=== PATIENT | female | born 1985 | race Caucasian/White ===

== ENCOUNTER 2018-01-26 09:13 | Outpatient (CLI) | payer OTHER ==
[2018-01-26 11:43] LABS: Hemoglobin 13.8 g/dL (12.0-16.0); Mean Corpuscular HGB CONC 32.1 g/dL (32.0-36.0); Mean Corpuscular Hemoglobin 28.2 pg (27.0-31.0); Mean Corpuscular Volume 87.7 fl (81.0-99.0); Mean Platelet Volume 6.6 fL (7.4-10.4); Platelet Count 455 thou/uL (130-400); RBC Distribution Width 12.2 % (11.5-14.5); Red Blood Cell (RBC) Count 4.89 mill/uL (4.20-5.40)
[2018-01-26 11:48] LABS: BHCG - Serum Negative (NEGATIVE); Pregs Control Background? CLEAR/WHITE (CLR/WHITE); Pregs Control Bar Appear? YES (CONTROL BAR)
--- NOTE | 2018-01-28 18:29 | EKG ---
Test Reason : Blood Pressure : / mmHG Vent. Rate : 078 BPM Atrial Rate : 078 BPM P-R Int : 146 ms QRS Dur : 072 ms QT Int : 374 ms P-R-T Axes : 068 087 018 degrees QTc Int : 426 ms Normal sinus rhythm Low voltage QRS Borderline ECG No previous ECGs available Confirmed by ADEBAYO BARRY, DR. Rg ([id number]) on 01/28/2018 6:28:46 PM Referred By: RIGO Confirmed By:DR. Ifrah FIORE MD
== END 2018-01-26 09:14 | disposition home or self-care (01) ==
LOC: LABBT 09:13
PROVIDERS: ATTEND Obstetrics & Gynecology
DX: Z01.818 Encounter for other preprocedural examination (principal); D21.9 Benign neoplasm of connective and other soft tissue, unspecified
CPT/HCPCS: 84703; 85027; 86850; 86900; 86901; 93005; 93010

== ENCOUNTER 2018-01-30 05:47 | Day surgery (SDC) | payer OTHER ==
[2018-01-26 09:45] VITALS: BMI 28.3
--- NOTE | 2018-01-29 20:08 | HP ---
DATE OF ADMISSION: 01/30/2018 REASON FOR ADMISSION: Large solitary uterine fibroid with dysmenorrhea and pelvic pain. SCHEDULED PROCEDURE: Laparoscopic myomectomy with da Leticia and bag retrieval morselization. HISTORY OF PRESENT ILLNESS: Ms. Skelton is a 33-year-old G0, who initially came to see me in November at her annual exam where she was complaining of pelvic pain and severe dysmenorrhea with pressure. She was noted to have an exam consistent with a large fundal fibroid. Ultrasound and MRI confirmed t hat she has a 9 cm in greatest diameter on the posterior right lateral fundal fibroid that is solitar y in nature. I did discuss with the patient options for management, decision was made to proceed wit h myomectomy with da Leticia robotic bag retrieval. OB AND VOCATIONAL SERVICES SPECIALIST HISTORY: G0, not sexually active at this time. No history of STDs. PAST MEDICAL HISTORY: Significant for hypertension. PAST SURGICAL HISTORY: None. MEDICATIONS: Losartan. ALLERGIES: ZITHROMAX. SOCIAL HISTORY: Denies tobacco, alcohol, or IV drug abuse. FAMILY HISTORY: Noncontributory. REVIEW OF SYSTEMS: Noncontributory. PHYSICAL EXAMINATION: GENERAL: White female. VITAL SIGNS: 5 feet 2, 163 kg, BMI 29.8, blood pressure 120/74. HEENT: Within normal limits. LUNGS: Clear to auscultation bilaterally. HEART: Regular rhythm. BREASTS: Without masses bilaterally. ABDOMEN: Soft, nontender, no rebound or guarding. PELVIC: Vulva without lesions. Vagina with discharge. Cervix, nulliparous. Uterus, anteverted, en larged, 13 week size, fundal fibroid. No adnexal masses noted. LABORATORY STUDIES: Ultrasound and MRI confirmed solitary fibroid, measuring right at 10 cm in great est diameter, displacing the endometrial cavity to the left. No adnexal masses were noted. IMPRESSION: Large solitary symptomatic uterine fibroid. PLAN: Discussed with patient options including open myomectomy versus laparoscopic and retriev al with bag. We will proceed with the laparoscopic myomectomy retrieval with bag. The patient under stood risks and benefits of procedure including possible hysterectomy, possible infertility associate d with either fibroid or edema to interstitial portion of the fallopian tube from surgery, bleeding, and recurrence of fibroids. We will administer appropriate antibiotic and DVT prophylaxis and perfor m aforementioned surgery at [facility] on 01/30/2018.
[2018-01-30] MEDS ORDERED: CEFAZOLIN/Water 2 GM/20 ML SYRINGE ONE (06:04)
[2018-01-30] MEDS ORDERED: Bupivacaine HCl 0.5%/Epinephrine 1:200,000/PF 30 ml Vial ONE (06:32)
[2018-01-30] MEDS ORDERED: Fentanyl 250 MCG/5 ML VIAL ONE (07:19)
[2018-01-30] MEDS ORDERED: Promethazine HCl 25 MG/ML VIAL SLOW IVP PRN (10:23)
[2018-01-30] MEDS ORDERED: Meperidine HCl/PF 25 MG/ML VIAL SLOW IVP PRN (10:23)
[2018-01-30] MEDS ORDERED: Ondansetron HCl/PF 4 MG/2 ML Vial IVP PRN ×2 (10:23→12:13)
[2018-01-30] MEDS ORDERED: Fentanyl 100 MCG/2 ML VIAL ONE ×3 (10:47→11:42)
--- NOTE | 2018-01-30 11:17 | OP ---
DATE OF PROCEDURE: 01/30/2018 PREOPERATIVE DIAGNOSIS: Large posterior fundal fibroid, 9 cm. POSTOPERATIVE DIAGNOSIS: Large posterior fundal fibroid, 9 cm. PROCEDURE: Laparoscopic myomectomy with da Leticia robot assist and in bag morselization. SURGEON: Zach Skinner M.D. LEAD TEACHER: Yasmin Marrero D.O. ANESTHESIA: Amanda Umaña M.D. General endotracheal. ESTIMATED BLOOD LOSS: 500 mL. MEDICATIONS: Two grams Ancef preincision. DVT PROPHYLAXIS: SCDs. DRAINS: Alcocer to gravity, clear urine. OPERATIVE FINDINGS: 1. A large 9 cm posterior fibroid. 2. No evidence of entry into the endometrial cavity during myomectomy. 3. Greater than 2/3 depth thickness depth dissection of a uterine musculature for removal of fibroid . 4. Hemostasis, clear urine, counts correct at the end of the procedure. DISPOSITION: Recovery room and observation status. DESCRIPTION OF OPERATIVE PROCEDURE: After obtaining proper informed consent, the patient was taken t o the operating room where general endotracheal anesthesia was achieved without difficulty. The carolina ent was prepped and draped in dorsal lithotomy in Carlos stirrups. Side-hand speculum placed in vagin a, cervix identified, grasped with single-tooth tenaculum at 12 o'clock and Hulka manipulator placed inside. Alcocer catheter placed. Speculum and tenaculum removed. Polo Coach changed his gloves and tur chris his attention to the abdominal portion of procedure, 10 mL of Marcaine injected at the superior a spect of the umbilicus and a 12 mm skin incision made, carried down to the fascia and freeze needle p laced inside abdominal cavity. Insufflation carried out with carbon dioxide to a max pressure of 15. A 12 mm trocar was placed and confirmation entry into the peritoneal cavity without trauma to the u nderlying viscera was noted. The patient was placed in steep Trendelenburg position. Right and left lateral 8 mm da Leticia robot trocars were placed under direct visualization as well as an 11 mm norma tant port in the right upper quadrant. Umbilical incision was extended vertically to approximately 2 .5 cm in length and carried down to the fascia and the fascial incision extended at a distance as wel l. The applied medical small GelPOINT trocar was placed in the usual manner and the applied medical abdominal retrieval bag was placed in the right upper quadrant. The da Leticia robot was docked with a cobra grasper in the left hand and a monopolar scissor in the right after placing in steep Trendelen oscar position. Approximately 30 mL of a dilute Pitressin solution was injected into the fibroid joana g the posterior aspect and incision was carried through the serosa of the uterus horizontally over th e level of the fibroid. Dissection sharply was carried down to the level that the fibroid was identi fied and then the fibroid was dissected circumferentially free of the uterus. This was carried out i n a progressive manner over approximately 1 hour period of time. No evidence of entry into the uteri ne cavity or interference with the intrauterine course of the fallopian tubes was noted. Once the sp ecimen was removed it was placed in the left upper quadrant for retrieval. The space created by removal of the fibroid was reapproximated using running continuous Stratafix sutures x3, the last la lyudmila being a running locking suture at the level of the surface of the fibroid. Tisseel was applied a cross the incision for hemostasis and good hemostasis noted after application. Suction irrigation wa s carried out of the pelvis and upper abdomen. The fibroid specimen was placed in the applied medica l retrieval bag. The da Leticia trocars removed and the robot undocked. The GelPOINT top was pulled o ut and the retrieval bag ring was pulled out through the GelPOINT and pulled up snugly against the an terior abdominal wall. The fibroid was then morcellated out in the usual manner using Nabil thyroid clamps and 11 blade removing the specimen in its entirety. Once this was done, all the trocars were removed. The fascia at the level of the umbilical trocar with the GelPOINT was reapproximated using running continuous 0 Vicryl suture on a UR-5 needle reapproximating the fascia. The skin was reappro ximated x4 using 4-0 Monocryl and Dermabond. Hulka manipulator removed. The patient awakened, extub ated, and taken to recovery room in good condition.
[2018-01-30] MEDS ORDERED: Zolpidem Tartrate 5 MG TAB PO PRN (12:13)
[2018-01-30] MEDS ORDERED: Promethazine HCl 25 MG/ML VIAL IM PRN (12:13)
[2018-01-30] MEDS ORDERED: Morphine 4 MG/ML Carpuject SLOW IVP PRN (12:13)
[2018-01-30] MEDS ORDERED: Acetaminophen 1,000 MG in Premix Bag 1 BAG IVPB SCH (12:13)
[2018-01-30] MEDS ORDERED: Morphine 5 MG/ML SYRINGE SLOW IVP PRN (12:18)
[2018-01-30] MEDS: Ketorolac Tromethamine 30 MG/ML VIAL IVP SCH ×2 (12:24→18:46)
[2018-01-30] MEDS: Morphine 5 MG/ML SYRINGE SLOW IVP PRN ×2 (13:53→22:20)
[2018-01-30] MEDS: Lactated Ringer's 1,000 ML IV SCH ×2 (13:55→23:52)
[2018-01-30] MEDS: Acetaminophen 1,000 MG in Premix Bag 1 BAG IVPB SCH ×2 (15:35→21:18)
[2018-01-30] MEDS ORDERED: Propofol 200 MG/20 ML VIAL ONE (16:21)
[2018-01-30] MEDS ORDERED: Metoprolol Tartrate 5 MG/5 ML VIAL ONE (16:21)
[2018-01-30] MEDS ORDERED: Glycopyrrolate 0.2 MG/ML 5 ML SYRINGE ONE (16:21)
[2018-01-30] MEDS ORDERED: Lidocaine 1% PF 5 ML VIAL ONE (16:21)
[2018-01-30] MEDS ORDERED: Ketorolac Tromethamine 30 MG/ML VIAL ONE (16:21)
[2018-01-30] MEDS ORDERED: Dexamethasone 20 MG/5 ML VIAL ONE (16:21)
[2018-01-30] MEDS ORDERED: Simethicone Chewable 80 MG TAB PO PRN (20:47)
[2018-01-30] MEDS: traMADol HCl 50 MG TAB PO PRN (21:17)
[2018-01-31] MEDS: Ketorolac Tromethamine 30 MG/ML VIAL IVP SCH ×2 (00:08→05:23)
[2018-01-31] MEDS: Lactated Ringer's 1,000 ML IV SCH ×2 (00:13→12:30)
[2018-01-31] MEDS: Morphine 5 MG/ML SYRINGE SLOW IVP PRN ×2 (02:33→06:41)
[2018-01-31] MEDS: Acetaminophen 1,000 MG in Premix Bag 1 BAG IVPB SCH (02:36)
[2018-01-31] MEDS: traMADol HCl 50 MG TAB PO PRN (05:24)
[2018-01-31 05:44] LABS: Hemoglobin 10.6 g/dL (12.0-16.0); Mean Corpuscular HGB CONC 33.2 g/dL (32.0-36.0); Mean Corpuscular Hemoglobin 29.2 pg (27.0-31.0); Mean Corpuscular Volume 87.9 fl (81.0-99.0); Mean Platelet Volume 6.4 fL (7.4-10.4); Platelet Count 295 thou/uL (130-400); RBC Distribution Width 12.2 % (11.5-14.5); Red Blood Cell (RBC) Count 3.64 mill/uL (4.20-5.40); White Blood Cell (WBC) Count 12.5 thou/uL (4.8-10.8)
[2018-01-31] MEDS ORDERED: HYDROcodone/Acetaminophen 5/325 mg Tablet PO PRN (07:37)
--- NOTE | 2018-01-31 07:54 | DIS ---
SUMMARY OF HOSPITAL COURSE: Ms. Skelton was admitted and underwent a laparoscopic myomectomy for a l arge 7 cm posterior right fundal fibroid. Hematocrit went from 40 to 32%, which is consistent with marybeth olmstead patient's EBL intraoperatively. Postoperatively challenges included urinary retention which was f or approximately 8 hours. The patient, however, was able to void without catheterization and by the postoperative day #1, was voiding with ease. She was tolerating p.o. well. Pain control was also di fficult with the patient which was not surprising considering the large size of the fibroid and typic al post-fibroid pain. Initial control was with morphine, Ofirmev, and Toradol. The patient was underwood ged over to Celebrex and Boone for discharge. A.m. vital signs included a blood pressure 121/63, pulse of 83, temperature 98.4, respirations 18. Marybeth olmstead patient remained afebrile throughout her hospitalization. Her abdomen had normal discomfort. Her incisions were intact x4. There was moderate bruising consistent with a laparoscopy noted. She had no distention and she had active bowel sounds. The pain was generally at the level of her uterus we re reapproximation of the myometrium had occurred. Extremities without clubbing, cyanosis or edema. The patient will be discharged home on Celebrex and Bo[place]. She will have follow up at [facility] [place] in 4 weeks. Pathology will be followed up wh en available.
[2018-01-31] MEDS: HYDROcodone/Acetaminophen 5/325 mg Tablet PO PRN ×2 (08:28→12:28)
[2018-01-31] MEDS ORDERED: NORETHINDRONE E ESTRADIOL IRON PO SCH (09:00)
[2018-01-31] MEDS ORDERED: LO LOESTRIN FE PO SCH (09:00)
[2018-01-31] MEDS ORDERED: CeleCOXIB 100 MG CAP PO SCH (09:00)
[2018-01-31] MEDS ORDERED: Valsartan 80 MG TAB PO SCH (09:00)
[2018-01-31] MEDS ORDERED: Non-Formulary Item 1 EACH (Valsartan [Valsartan] 160 MG) PO SCH (09:00)
[2018-01-31] MEDS ORDERED: Docusate Calcium (SURFAK) 240 MG CAP PO PRN (11:03)
[2018-01-31 12:36] VITALS: BP 124/75; TEMP 97.8
== END 2018-01-31 12:50 | disposition home or self-care (01) ==
LOC: SDC 05:47 → 3SE 10:45 → UNDOADMOB 10:45 → SDC 01-31 12:50 → UNDODISOB 01-31 12:50
PROVIDERS: ATTEND Obstetrics & Gynecology
PROC: 0UB94ZZ Excision of Uterus, Percutaneous Endoscopic Approach (ICD-10-PCS; principal; 2018-01-31)
DX: D25.1 Intramural leiomyoma of uterus (principal); N92.0 Excessive and frequent menstruation with regular cycle; I10 Essential (primary) hypertension; Z79.899 Other long term (current) drug therapy; Z88.1 Allergy status to other antibiotic agents
CPT/HCPCS: 36415; 85027; 88305; 88360; 96374; J2270; A4216; J0131; J0670; J1100; J1885; J2001; J2405; J2704; J3010

== ENCOUNTER 2019-03-16 04:12 | Emergency (ER) | payer OTHER, SELFPAY ==
[2019-03-16] MEDS ORDERED: Ondansetron PF 4 MG/2 ML Vial ONE (04:15)
[2019-03-16] MEDS ORDERED: Ketorolac Tromethamine 30 MG/ML VIAL ONE (04:36)
[2019-03-16 04:41] LABS: #Basophils 0.1 thou/uL (0.0-0.2); #Eosinphils 0.1 thou/uL (0.0-0.7); #Lymphocytes 4.3 thou/uL (1.20-3.40); #Monocytes 0.7 thou/uL (0.11-0.59); %Basophils 0.8 % (0.0-1.0); %Eosinophils 0.8 % (0.0-10.0); %Lymphocytes 47.2 % (21.0-51.0); %Monocytes 7.8 % (0.0-10.0); %Neutrophils 43.5 % (42.0-75.0); Hemoglobin 14.9 g/dL (12.0-16.0); Mean Corpuscular HGB CONC 34.8 g/dL (32.0-36.0); Mean Corpuscular Hemoglobin 31.1 pg (27.0-31.0); Mean Corpuscular Volume 89.2 fL (78.0-98.0); Mean Platelet Volume 6.6 fL (7.4-10.4); Platelet Count 454 thou/uL (130-400); RBC Distribution Width 11.4 % (11.5-14.5); Red Blood Cell (RBC) Count 4.81 mill/uL (4.20-5.40); White Blood Cell (WBC) Count 9.1 thou/uL (4.8-10.8)
[2019-03-16] MEDS ORDERED: Morphine 4 MG/ML VIAL ONE ×2 (04:54→05:28)
[2019-03-16] MEDS ORDERED: Promethazine HCl 25 MG/ML VIAL ONE (04:54)
[2019-03-16 04:58] LABS: ALT (SGPT) 23 U/L (8-55); AST (SGOT) 17 U/L (5-34); Albumin 4.3 g/dL (3.5-5.0); Alkaline Phosphatase 44 U/L (40-150); Anion Gap 17 mmol/L (10-20); BUN (Urea Nitrogen) 13 mg/dL (7.0-18.7); Bilirubin, Total 1.7 mg/dL (0.2-1.2); Calc. Creatinine Clearance 0 mL/min (70-130); Calcium 9.7 mg/dL (7.8-10.44); Carbon Dioxide 22 mmol/L (22-29); Chloride 102 mmol/L (98-107); Estimated GFR-MDRD 79; Globulin 3.1 g/dL (2.4-3.5); Glucose 113 mg/dL (70-105); Lipase 44 U/L (8-78); Protein, Total 7.4 g/dL (6.0-8.3); Sodium 138 mmol/L (136-145)
[2019-03-16 05:49] LABS: BHCG - Serum Negative (NEGATIVE); Pregs Control Background? CLEAR/WHITE (CLR/WHITE); Pregs Control Bar Appear? YES (CONTROL BAR)
[2019-03-16] MEDS ORDERED: Pantoprazole 40 MG VIAL ONE (06:09)
[2019-03-16] MEDS ORDERED: Mag-Al 1200 mg/1200 mg/30 ML UDCUP ONE (06:23)
[2019-03-16] MEDS ORDERED: Lidocaine Viscous Sol 2% 15 ml UD Cup ONE (06:23)
[2019-03-16] MEDS ORDERED: Dicyclomine 20 MG TAB ONE (06:57)
[2019-03-16 06:58] LABS: Bilirubin Negative (Negative); Blood, Urine Negative (Negative); Clarity CLEAR (Clear); Glucose, Urine (Dipstick) Negative (Negative); Leukocyte Moderate (Negative); Nitrite Negative (Negative); Protein, Urine (Dipstick) Negative (Neg-Trace); Specific Gravity, Urine 1.009 (1.002-1.036); Urobilinogen 0.2 mg/dL (0.2-1.0); pH, Urine 7.5 (5.0-9.0)
[2019-03-16 07:00] LABS: Bacteria/HPF 1+ HPF (None Seen)
[2019-03-16 07:19] LABS: Hyaline Casts/LPF 0-3 HYALINE CAST LPF (0-3 Hyaline); Renal Epithelial 0-3 HPF (0-3); Transitional Epithelial 0-3 HPF (0-3)
--- NOTE | 2019-03-16 07:28 | CT ---
CT ABDOMEN AND PELVIS WITHOUT CONTRAST: Date: 03/16/19 INDICATION: History of abdominal pain. COMPARISON: None. FINDINGS: The lung bases are clear. The unopacified liver appears within normal limits. Unopacified pancreas and spleen appear within no rmal limits. Unopacified adrenal glands are normal appearing. The unopacified kidneys are normal appe aring. No hydronephrosis is demonstrated. No free fluid or enlarged lymph nodes are evident within the abdomen. Unopacified bladder, rectum, and perirectal soft tissues are unremarkable appearing. Unopacified colon is unremarkable. There is a normal appendix in the right lower quadrant. Unopacified small bowel appears within normal limits. There is a fat-containing umbilical hernia. No free fluid is evident. No acute osseous abnormality is evident. IMPRESSION: No CT explanation for the patient's abdominal pain. POS: BH
== END 2019-03-16 08:35 | disposition home or self-care (01) ==
LOC: ERS 04:12
DX: K29.70 Gastritis, unspecified, without bleeding (principal); I10 Essential (primary) hypertension; Z79.899 Other long term (current) drug therapy; Z79.82 Long term (current) use of aspirin
CPT/HCPCS: 74176; 80053; 81003; 81015; 83690; 84703; 85025; 93005; 96361; 96365; 96375; 96376; C9113; J1885; J2270; J2405; J2550

== ENCOUNTER 2019-08-23 07:38 | Day surgery (SDC) | payer OTHER ==
[2019-08-22 14:22] VITALS: BMI 28.3
[2019-08-23] MEDS ORDERED: Ketorolac Tromethamine 30 MG/ML VIAL ONE (08:15)
[2019-08-23 08:32] LABS: #Basophils 0.1 thou/uL (0.0-0.2); #Eosinphils 0.1 thou/uL (0.0-0.7); #Lymphocytes 2.3 thou/uL (1.20-3.40); #Monocytes 0.7 thou/uL (0.11-0.59); #Neutrophils 4.4 thou/uL (1.40-6.50); %Basophils 1.1 % (0.0-1.0); %Eosinophils 0.9 % (0.0-10.0); %Lymphocytes 30.5 % (21.0-51.0); %Monocytes 9.6 % (0.0-10.0); %Neutrophils 57.9 % (42.0-75.0); Hemoglobin 13.6 g/dL (12.0-16.0); Mean Corpuscular HGB CONC 35.1 g/dL (32.0-36.0); Mean Corpuscular Hemoglobin 31.7 pg (27.0-31.0); Mean Corpuscular Volume 90.4 fL (78.0-98.0); Mean Platelet Volume 6.5 fL (7.4-10.4); Platelet Count 416 thou/uL (130-400); RBC Distribution Width 11.6 % (11.5-14.5); Red Blood Cell (RBC) Count 4.28 mill/uL (4.20-5.40); White Blood Cell (WBC) Count 7.6 thou/uL (4.8-10.8)
[2019-08-23 08:41] LABS: BHCG - Serum Negative (NEGATIVE); Pregs Control Background? CLEAR/WHITE (CLR/WHITE); Pregs Control Bar Appear? YES (CONTROL BAR)
[2019-08-23 08:54] LABS: ALT (SGPT) 34 U/L (8-55); AST (SGOT) 21 U/L (5-34); Albumin 4.1 g/dL (3.5-5.0); Alkaline Phosphatase 50 U/L (40-110); Anion Gap 10 mmol/L (10-20); BUN (Urea Nitrogen) 12 mg/dL (7.0-18.7); Bilirubin, Total 1.4 mg/dL (0.2-1.2); Calc. Creatinine Clearance 109 mL/min (70-130); Calcium 9.1 mg/dL (7.8-10.44); Carbon Dioxide 25 mmol/L (22-29); Chloride 105 mmol/L (98-107); Estimated GFR-MDRD 81; Globulin 2.6 g/dL (2.4-3.5); Glucose 91 mg/dL (70-105); Potassium 4.1 mmol/L (3.5-5.1); Protein, Total 6.7 g/dL (6.0-8.3); Sodium 136 mmol/L (136-145)
[2019-08-23] MEDS ORDERED: Bupivacaine/Epinephrine 0.25% 30 ML VIAL ONE (09:44)
[2019-08-23] MEDS ORDERED: Midazolam HCl 2 mg/2 ml Vial ONE (09:48)
[2019-08-23] MEDS ORDERED: Fentanyl 100 MCG/2 ML VIAL ONE ×2 (09:54→12:29)
[2019-08-23] MEDS ORDERED: HYDROcodone/Acetaminophen 5/325 mg Tablet ONE (14:09)
--- NOTE | 2019-08-23 22:31 | OP ---
DATE OF PROCEDURE: 08/23/2019 PREOPERATIVE DIAGNOSIS: Symptomatic cholelithiasis, umbilical hernia. POSTOPERATIVE DIAGNOSIS: Symptomatic cholelithiasis, umbilical hernia with an incidental finding of right ovarian cyst. OPERATION PERFORMED: Laparoscopic cholecystectomy and umbilical hernia repair without mesh. ANESTHESIA: General endotracheal. INDICATIONS: Patient is a 34-year-old white female who presents with symptoms referable to her gallbladder and ultrasound proven cholelithiasis. She also has an incisional hernia at her umbilicus from a prior laparoscopic surgery. Plan is to repair this under the same anesthetic. DESCRIPTION OF OPERATION: Informed consent was obtained. Patient was taken to the operating room, where general endotracheal anesthesia obtained. The patient is in supine position. Abdomen was prepped with ChloraPrep, draped in sterile fashion. Local anesthetic was infiltrated using 0.25% Marcaine with epinephrine. A 5 mm right upper quadrant incision was created through which a Veress needle was passed into the peritoneal cavity. Pneumoperitoneum was established using carbon dioxide up to pressure of 15 mmHg. A 5 mm trocar port site was established through the same incision. Laparoscopic camera was passed through this port. Under direct vision, a 12 mm port was passed through the infraumbilical incision through the hernia defect into the abdominal cavity. Two additional 5 mm ports were placed in the right upper quadrant. Attention was turned to the gallbladder. This was thickened and sclerotic. It was grasped and retracted in cephalad direction. Infundibulum was grasped and retracted laterally inferiorly. Careful dissection was carried at the apex of the gallbladder. There was substantial scarring in this area. The duct was dissected and found to be small and without inflammation. It was divided between clips leaving 2 on the side to remain within the abdomen. The artery was dissected in a similar fashion and also divided between clips. The gallbladder was dissected out of the gallbladder fossa using careful electrocautery. During the course of the dissection, a couple of small openings were created in the posterior gallbladder and a few gallstones were expressed through these openings. These were each retrieved and saved. The gallbladder was removed from the liver, placed in a specimen retrieval sac along with a gallstones that had fallen out. This was removed through the umbilical port site. The fascial defect was at least 2 cm in diameter. This was repaired using two separate [id number]-me-[id number] sutures of 0 Vicryl using a GraNee needle. The pelvis was explored. There was found to be a cyst on the right ovary measuring about 2.5 cm. There was no abnormality with the left ovary. Both fallopian tubes were normal. The uterus was briefly examined, appeared to be within normal limits as well. All ports and instruments were removed under direct vision. Pneumoperitoneum was carefully evacuated. 0.25% Marcaine with epinephrine infiltrated at port site. Skin edges approximated with 4-0 Monocryl subcuticular suture. Dermabond was placed externally. There were no complications. Patient tolerated the procedure well and was taken to Recovery in stable condition. Job ID: [id number]
== END 2019-08-23 14:55 | disposition home or self-care (01) ==
LOC: SDC 07:38
PROVIDERS: ATTEND Specialist
PROC: 0WQF4ZZ Repair Abdominal Wall, Percutaneous Endoscopic Approach (ICD-10-PCS; principal; 2019-08-23)
PROC: 0FT44ZZ Resection of Gallbladder, Percutaneous Endoscopic Approach (ICD-10-PCS; principal; 2019-08-23)
DX: K80.10 Calculus of gallbladder with chronic cholecystitis without obstruction (principal); K42.9 Umbilical hernia without obstruction or gangrene; N83.201 Unspecified ovarian cyst, right side; I10 Essential (primary) hypertension; Z79.82 Long term (current) use of aspirin; Z79.899 Other long term (current) drug therapy; Z88.1 Allergy status to other antibiotic agents
CPT/HCPCS: 36415; 80053; 84703; 85025; 88304; J0131; J0690; J1885; J2250; J3010

== ENCOUNTER 2023-07-12 18:00 | Outpatient (CLI) | payer BC, SELFPAY | END 2023-07-12 18:01 | disposition home or self-care (01) | LOC: SLEEPLAB 18:00 | PROVIDERS: ATTEND Family Medicine | DX: G47.33 Obstructive sleep apnea (adult) (pediatric) (principal); I10 Essential (primary) hypertension; R06.83 Snoring; E66.9 Obesity, unspecified; G47.00 Insomnia, unspecified; Z68.31 Body mass index [BMI] 31.0-31.9, adult | CPT/HCPCS: 95800 ==